=== PATIENT | male | born 1985 | race Caucasian/White ===

== ENCOUNTER 2018-07-11 21:29 | Emergency (ER) | payer SELFPAY ==
[2018-07-11] MEDS: LIDOCAINE 1% (MPF) 5 ML VIAL INFIL (22:21)
== END 2018-07-11 23:18 | disposition home or self-care (01) ==
LOC: FTE 21:29
DX: L03.115 Cellulitis of right lower limb (principal); F17.210 Nicotine dependence, cigarettes, uncomplicated
CPT/HCPCS: 93971; 99284-25

== ENCOUNTER 2018-08-19 13:27 | Emergency (ER) | payer SELFPAY | END 2018-08-19 16:14 | disposition left against medical advice (07) | LOC: FTE 13:27 | DX: Z53.21 Procedure and treatment not carried out due to patient leaving prior to being seen by health care provider (principal) | CPT/HCPCS: 93005 ==